=== PATIENT | female | born 1945 | race Caucasian/White ===

== ENCOUNTER 2020-06-29 07:15 | Inpatient (IN) ==
[2020-06-29] MEDS: 0.9 % Sodium Chloride 1,000 ML IVC SCH (08:19)
[2020-06-29] MEDS ORDERED: *HR* Midazolam HCl 2 MG/2 ML VIAL ONE (08:51)
[2020-06-29] MEDS ORDERED: 0.9 % Sodium Chloride 500 ML ONE (08:51)
[2020-06-29] MEDS ORDERED: *HR* FentaNYL (PF) 100 MCG/2 ML VIAL ONE (08:51)
[2020-06-29] MEDS ORDERED: Acetaminophen 325 MG TABLET PO PRN (10:21)
[2020-06-29] MEDS ORDERED: GLUCAGON HCL 1 MG IJ PRN (10:23)
[2020-06-29] MEDS ORDERED: Semaglutide [Ozempic] 0.5 MG SQ SCH (10:30)
[2020-06-29] MEDS ORDERED: *HR* Dextrose 50 % in Water (Vial) 50 ML VIAL IVP PRN (11:37)
[2020-06-29] MEDS ORDERED: D5% in Water 1,000 ML IVC PRN (11:37)
[2020-06-29] MEDS ORDERED: Dextrose Gel 15 GM/37.5 ML TUBE PO PRN ×2 (11:37)
[2020-06-29] MEDS: Insulin LISPRO 300 UNITS/3 ML VIAL SQ SCH ×2 (13:49→17:49)
[2020-06-29] MEDS: *HR* OxyCODONE Immed Rel 5 MG TABLET PO PRN (15:28)
[2020-06-29] MEDS ORDERED: CeFAZolin 2 GM/120 ML BAG IVPB SCH (16:00)
[2020-06-29] MEDS: ceFAZolin 2,000 MG in 0.9 % Sodium Chloride 100 ML IVPB SCH (17:49)
[2020-06-29] MEDS: Budesonide/Formoterol 160/4.5 1 PUFF INH IH SCH (20:00)
[2020-06-29] MEDS ORDERED: traZODone 50 MG TABLET PO SCH (21:00)
[2020-06-30] MEDS: ceFAZolin 2,000 MG in 0.9 % Sodium Chloride 100 ML IVPB SCH (01:24)
[2020-06-30 04:58] LABS: BUN/Creatinine Ratio 10 (6-26); Blood Urea Nitrogen 11 mg/dL (8-23); Carbon Dioxide 23 mEq/L (23-29); Chloride 107 mEq/L (98-107); Potassium 3.8 mEq/L (3.5-5.1); Sodium 138 mEq/L (136-145); eGFR For African Americans > 60 (> 60); eGFR For Non-African Americans 50 (> 60)
[2020-06-30] MEDS: hydroCHLOROthiazide 25 MG TABLET PO SCH (08:04)
[2020-06-30] MEDS: Aspirin Enteric Coated 325 MG Tablet PO SCH (08:04)
[2020-06-30] MEDS: *HR* OxyCODONE Immed Rel 5 MG TABLET PO PRN (08:04)
[2020-06-30] MEDS: Multivit/Ca/Min/Fe/FA 1 TAB TABLET PO SCH (08:04)
[2020-06-30] MEDS: 0.9 % Sodium Chloride 1,000 ML IVC SCH (08:05)
[2020-06-30] MEDS: Insulin LISPRO 300 UNITS/3 ML VIAL SQ SCH ×3 (08:05→17:25)
[2020-06-30] MEDS ORDERED: NON-FORMULARY MEDICATION 1 EACH EACH (Fluticasone/Umeclidin/Vilanter [Trelegy Ellipta 100- IH SCH (09:00)
[2020-06-30] MEDS ORDERED: INSULIN GLARGINE SQ SCH (09:00)
[2020-06-30] MEDS ORDERED: Linaclotide [Linzess] 145 MCG PO SCH (09:00)
[2020-06-30] MEDS ORDERED: Insulin LISPRO 300 UNITS/3 ML VIAL SQ SCH (09:00)
[2020-06-30] MEDS ORDERED: LIXISENATIDE SQ SCH (09:00)
[2020-06-30] MEDS: Tiotropium 18 MCG inhalation IH SCH (10:48)
[2020-06-30] MEDS: Budesonide/Formoterol 160/4.5 1 PUFF INH IH SCH ×2 (10:48→21:26)
[2020-06-30 11:50] LABS: Basophils # 0.1 K/mcL (0.0-0.2); Basophils % 0.9 %; Eosinophils # 0.2 K/mcL (0.0-0.6); Eosinophils % 2.6 %; Hemoglobin 11.1 g/dL (11.5-15.4); Immature Granulocytes % 0.3 % (0-4); Lymphocytes # 1.8 K/mcL (0.6-4.6); Lymphocytes % 30.6 %; Mean Corpuscular HGB Conc 31.7 g/dL (31.6-35.5); Mean Corpuscular Hemoglobin 32.5 pg (28.0-33.3); Mean Corpuscular Volume 102.3 fL (83.0-100.0); Mean Platelet Volume 10.7 fL (9.4-12.4); Monocytes # 0.6 K/mcL (0.0-1.3); Monocytes % 10.4 %; Neutrophils # 3.2 K/mcL (1.6-8.9); Platelet Count 135 K/mcL (140-400); Red Blood Count 3.42 M/mcL (3.82-4.97); Red Cell Distribution Width 14.3 % (11.5-14.5); Segmented Neutrophils % 55.2 %; White Blood Count 5.9 K/mcL (4.3-11.1)
[2020-06-30] MEDS ORDERED: Isovue-370 500 ML BOTTLE IVP ONE (11:57)
[2020-06-30 12:09] LABS: Magnesium 1.9 mg/dL (1.6-2.6)
[2020-06-30 12:20] LABS: Thyroid Stimulating Hormone 3.855 mcIU/mL (0.340-5.600)
[2020-06-30] MEDS ORDERED: Perflutren Lipid Microsphere 1.3 ML in 0.9 % Sodium Chloride 8.7 ML IVP PRN (12:51)
[2020-06-30] MEDS ORDERED: traZODone 50 MG TABLET PO PRN (21:00)
[2020-07-01 02:03] LABS: INR 1.2; Prothrombin Time 14.2 Seconds (9.4-12.1)
[2020-07-01 02:22] LABS: Alanine Aminotransferase 18 Units/L (7-52); Albumin 3.7 g/dL (3.5-5.7); Albumin/Globulin Ratio 1.2 (1.1-2.2); Alkaline Phosphatase 61 Units/L (34-104); Aspartate Amino Transferase 31 Units/L (13-39); BUN/Creatinine Ratio 13 (6-26); Bilirubin,Total 0.8 mg/dL (0.3-1.0); Blood Urea Nitrogen 15 mg/dL (8-23); Calcium 9.9 mg/dL (8.6-10.3); Carbon Dioxide 22 mEq/L (23-29); Chloride 106 mEq/L (98-107); Chol/HDL Ratio 4.3 (0-4.9); Cholesterol 162 mg/dL (< 200); Glucose 134 mg/dL (70-105); HDL Cholesterol 38 mg/dL (40-59); LDL Cholesterol,Calculated 98 mg/dL (< 100); Osmolality,Calculated 289 (280-300); Potassium 4.2 mEq/L (3.5-5.1); Sodium 138 mEq/L (136-145); Total Protein 6.7 g/dL (6.4-8.9); Triglycerides 132 mg/dL (< 150); Troponin I < 0.03 ng/mL (< 0.04); eGFR For African Americans 54 (> 60); eGFR For Non-African Americans 44 (> 60)
[2020-07-01 04:57] LABS: Estimated Average Glucose 192 mg/dl
[2020-07-01] MEDS: Budesonide/Formoterol 160/4.5 1 PUFF INH IH SCH ×2 (07:48→22:25)
[2020-07-01] MEDS: Tiotropium 18 MCG inhalation IH SCH (07:48)
[2020-07-01] MEDS: Aspirin Enteric Coated 325 MG Tablet PO SCH (08:00)
[2020-07-01] MEDS: hydroCHLOROthiazide 25 MG TABLET PO SCH (08:00)
[2020-07-01] MEDS: Insulin LISPRO 300 UNITS/3 ML VIAL SQ SCH ×3 (08:01→17:03)
[2020-07-01] MEDS: Multivit/Ca/Min/Fe/FA 1 TAB TABLET PO SCH (08:01)
[2020-07-01] MEDS ORDERED: Perflutren Lipid Microsphere 1.3 ML in 0.9 % Sodium Chloride 8.7 ML IVP PRN (08:59)
[2020-07-01] MEDS ORDERED: Ergocalciferol (VIT D2) 50,000 UNIT (1.25MG) CAP PO SCH (09:00)
[2020-07-01] MEDS: Gabapentin 300 MG CAPSULE PO SCH (19:37)
[2020-07-02 05:29] LABS: Hematocrit 34.9 % (35.3-44.9); Hemoglobin 11.2 g/dL (11.5-15.4); Mean Corpuscular HGB Conc 32.1 g/dL (31.6-35.5); Mean Corpuscular Hemoglobin 32.7 pg (28.0-33.3); Mean Platelet Volume 10.9 fL (9.4-12.4); Platelet Count 154 K/mcL (140-400); Red Blood Count 3.42 M/mcL (3.82-4.97); Red Cell Distribution Width 14.6 % (11.5-14.5)
[2020-07-02 05:48] LABS: Calcium 9.8 mg/dL (8.6-10.3); Potassium 4.5 mEq/L (3.5-5.1)
[2020-07-02] MEDS: Budesonide/Formoterol 160/4.5 1 PUFF INH IH SCH ×2 (08:00→23:04)
[2020-07-02] MEDS: Tiotropium 18 MCG inhalation IH SCH (08:00)
[2020-07-02] MEDS: Aspirin Enteric Coated 325 MG Tablet PO SCH (08:13)
[2020-07-02] MEDS: Multivit/Ca/Min/Fe/FA 1 TAB TABLET PO SCH (08:16)
[2020-07-02] MEDS: Insulin LISPRO 300 UNITS/3 ML VIAL SQ SCH ×3 (08:17→16:27)
[2020-07-02] MEDS ORDERED: Furosemide 40 MG TABLET PO SCH (09:00)
[2020-07-02] MEDS: Gabapentin 300 MG CAPSULE PO SCH (19:43)
[2020-07-03 05:55] LABS: Calcium 9.8 mg/dL (8.6-10.3); Potassium 4.5 mEq/L (3.5-5.1)
[2020-07-03] MEDS ORDERED: Ringers Solution, Lactated 1,000 ML IVC ONE (07:16)
[2020-07-03] MEDS: Insulin LISPRO 300 UNITS/3 ML VIAL SQ SCH ×3 (08:13→17:02)
[2020-07-03] MEDS: Multivit/Ca/Min/Fe/FA 1 TAB TABLET PO SCH (08:16)
[2020-07-03] MEDS: Aspirin Enteric Coated 325 MG Tablet PO SCH (08:16)
[2020-07-03] MEDS ORDERED: Semaglutide [Ozempic] 0.5 MG SQ SCH ×2 (09:00)
[2020-07-03] MEDS: Budesonide/Formoterol 160/4.5 1 PUFF INH IH SCH ×2 (11:24→21:45)
[2020-07-03] MEDS: Tiotropium 18 MCG inhalation IH SCH (11:24)
[2020-07-03] MEDS: Gabapentin 300 MG CAPSULE PO SCH (20:10)
[2020-07-04 04:07] LABS: Basophils # 0.1 K/mcL (0.0-0.2); Basophils % 1.1 %; Eosinophils # 0.3 K/mcL (0.0-0.6); Eosinophils % 4.6 %; Hematocrit 34.9 % (35.3-44.9); Hemoglobin 11.3 g/dL (11.5-15.4); Immature Granulocytes % 0.1 % (0-4); Lymphocytes # 2.9 K/mcL (0.6-4.6); Lymphocytes % 41.1 %; Mean Corpuscular HGB Conc 32.4 g/dL (31.6-35.5); Mean Corpuscular Hemoglobin 32.5 pg (28.0-33.3); Mean Corpuscular Volume 100.3 fL (83.0-100.0); Mean Platelet Volume 10.7 fL (9.4-12.4); Monocytes # 0.6 K/mcL (0.0-1.3); Neutrophils # 3.1 K/mcL (1.6-8.9); Platelet Count 167 K/mcL (140-400); Red Blood Count 3.48 M/mcL (3.82-4.97); Red Cell Distribution Width 14.3 % (11.5-14.5); Segmented Neutrophils % 44.1 %
[2020-07-04 04:27] LABS: Calcium 9.5 mg/dL (8.6-10.3); Potassium 4.2 mEq/L (3.5-5.1)
[2020-07-04] MEDS: Budesonide/Formoterol 160/4.5 1 PUFF INH IH SCH ×2 (08:01→20:28)
[2020-07-04] MEDS: Tiotropium 18 MCG inhalation IH SCH (08:01)
[2020-07-04] MEDS: Insulin LISPRO 300 UNITS/3 ML VIAL SQ SCH ×3 (10:42→17:49)
[2020-07-04] MEDS: Aspirin Enteric Coated 325 MG Tablet PO SCH (10:49)
[2020-07-04] MEDS: Multivit/Ca/Min/Fe/FA 1 TAB TABLET PO SCH (10:49)
[2020-07-04] MEDS: Gabapentin 300 MG CAPSULE PO SCH (20:34)
[2020-07-05] MEDS ORDERED: Apixaban 5 MG TABLET PO SCH (09:00)
[2020-07-05 09:03] LABS: Bilirubin,Urine Negative (Negative); Blood,Urine Large (Negative); Clarity,Urine Turbid (Clear); Color,Urine Brown (Yellow); Glucose,Urine (UA) Normal (Normal); Ketones,Urine Negative (Negative); Leukocyte Esterase,Urine Trace (Negative); Nitrite,Urine Negative (Negative); Protein,Urine 50 mg/dL (Neg-Trace); RBC,Urine TNTC per hpf (0-3); Specific Gravity,Urine 1.013 (1.010-1.025); Urobilinogen,Urine Normal (Normal); WBC,Urine 50-100 per hpf (0-3)
[2020-07-05] MEDS: Multivit/Ca/Min/Fe/FA 1 TAB TABLET PO SCH (09:27)
[2020-07-05] MEDS: Insulin LISPRO 300 UNITS/3 ML VIAL SQ SCH ×5 (09:28→20:31)
[2020-07-05] MEDS: Budesonide/Formoterol 160/4.5 1 PUFF INH IH SCH ×2 (10:11→19:40)
[2020-07-05] MEDS: Tiotropium 18 MCG inhalation IH SCH (10:13)
[2020-07-05 11:04] LABS: Basophils # 0.1 K/mcL (0.0-0.2); Basophils % 1.1 %; Eosinophils # 0.2 K/mcL (0.0-0.6); Eosinophils % 4.3 %; Hematocrit 34.5 % (35.3-44.9); Hemoglobin 10.7 g/dL (11.5-15.4); Immature Granulocytes % 0.2 % (0-4); Lymphocytes # 1.9 K/mcL (0.6-4.6); Lymphocytes % 36.4 %; Mean Corpuscular Hemoglobin 32.4 pg (28.0-33.3); Mean Corpuscular Volume 104.5 fL (83.0-100.0); Mean Platelet Volume 10.9 fL (9.4-12.4); Monocytes # 0.4 K/mcL (0.0-1.3); Monocytes % 7.7 %; Neutrophils # 2.7 K/mcL (1.6-8.9); Platelet Count 155 K/mcL (140-400); Red Cell Distribution Width 14.3 % (11.5-14.5); Segmented Neutrophils % 50.3 %; White Blood Count 5.3 K/mcL (4.3-11.1)
[2020-07-05 11:12] LABS: Calcium 9.6 mg/dL (8.6-10.3); Potassium 4.4 mEq/L (3.5-5.1)
[2020-07-05] MEDS: cefTRIAXone 2,000 MG in Water for inj. (sterile) 20 ML IVP SCH (16:25)
[2020-07-05] MEDS: 0.9 % Sodium Chloride 1,000 ML IVC SCH (17:38)
[2020-07-05] MEDS: Gabapentin 300 MG CAPSULE PO SCH (20:30)
[2020-07-05] MEDS: Insulin DETEMIR 100 UNIT/ML X5UNITS SQ SCH (20:31)
[2020-07-05 20:45] LABS: Hematocrit 36.1 % (35.3-44.9); Hemoglobin 11.4 g/dL (11.5-15.4)
[2020-07-06 05:58] LABS: Basophils # 0.1 K/mcL (0.0-0.2); Basophils % 0.9 %; Eosinophils # 0.4 K/mcL (0.0-0.6); Eosinophils % 5.4 %; Hematocrit 34.4 % (35.3-44.9); Hemoglobin 10.9 g/dL (11.5-15.4); Immature Granulocytes % 0.2 % (0-4); Lymphocytes # 2.9 K/mcL (0.6-4.6); Lymphocytes % 44.8 %; Mean Corpuscular HGB Conc 31.7 g/dL (31.6-35.5); Mean Corpuscular Hemoglobin 32.7 pg (28.0-33.3); Mean Corpuscular Volume 103.3 fL (83.0-100.0); Mean Platelet Volume 10.9 fL (9.4-12.4); Monocytes # 0.6 K/mcL (0.0-1.3); Monocytes % 9.3 %; Neutrophils # 2.6 K/mcL (1.6-8.9); Nucleated Red Blood Cells 0.3 /100 WBC (0); Platelet Count 155 K/mcL (140-400); Red Blood Count 3.33 M/mcL (3.82-4.97); Red Cell Distribution Width 14.6 % (11.5-14.5); Segmented Neutrophils % 39.4 %; White Blood Count 6.5 K/mcL (4.3-11.1)
[2020-07-06 06:17] LABS: Calcium 9.5 mg/dL (8.6-10.3); Potassium 4.5 mEq/L (3.5-5.1)
[2020-07-06] MEDS: Budesonide/Formoterol 160/4.5 1 PUFF INH IH SCH ×2 (07:46→20:05)
[2020-07-06] MEDS: Tiotropium 18 MCG inhalation IH SCH (07:46)
[2020-07-06] MEDS: Insulin DETEMIR 100 UNIT/ML X5UNITS SQ SCH ×2 (08:38→20:53)
[2020-07-06] MEDS: Insulin LISPRO 300 UNITS/3 ML VIAL SQ SCH ×6 (08:38→16:21)
[2020-07-06] MEDS: Multivit/Ca/Min/Fe/FA 1 TAB TABLET PO SCH (08:38)
[2020-07-06] MEDS: 0.9 % Sodium Chloride 1,000 ML IVC SCH ×2 (08:42→23:36)
[2020-07-06] MEDS: cefTRIAXone 2,000 MG in Water for inj. (sterile) 20 ML IVP SCH (16:21)
[2020-07-06] MEDS: Gabapentin 300 MG CAPSULE PO SCH (20:54)
[2020-07-07] MEDS: Insulin LISPRO 300 UNITS/3 ML VIAL SQ SCH ×5 (01:09→11:55)
[2020-07-07 06:59] LABS: Basophils # 0.1 K/mcL (0.0-0.2); Eosinophils # 0.4 K/mcL (0.0-0.6); Eosinophils % 6.1 %; Hematocrit 34.7 % (35.3-44.9); Hemoglobin 10.9 g/dL (11.5-15.4); Immature Granulocytes % 0.3 % (0-4); Lymphocytes # 2.6 K/mcL (0.6-4.6); Mean Corpuscular HGB Conc 31.4 g/dL (31.6-35.5); Mean Corpuscular Volume 105.2 fL (83.0-100.0); Mean Platelet Volume 10.9 fL (9.4-12.4); Monocytes # 0.5 K/mcL (0.0-1.3); Neutrophils # 2.2 K/mcL (1.6-8.9); Platelet Count 145 K/mcL (140-400); Red Cell Distribution Width 14.3 % (11.5-14.5); Segmented Neutrophils % 38.6 %; White Blood Count 5.8 K/mcL (4.3-11.1)
[2020-07-07 07:27] LABS: Calcium 9.4 mg/dL (8.6-10.3); Potassium 4.2 mEq/L (3.5-5.1)
[2020-07-07] MEDS: Multivit/Ca/Min/Fe/FA 1 TAB TABLET PO SCH (08:48)
[2020-07-07] MEDS: Insulin DETEMIR 100 UNIT/ML X5UNITS SQ SCH (08:48)
[2020-07-07 11:49] VITALS: BP 124/66
[2020-07-07] MEDS: Aspirin Enteric Coated 81 MG Tablet PO SCH ×2 (11:55→11:56)
[2020-07-07] MEDS: Tiotropium 18 MCG inhalation IH SCH (13:42)
[2020-07-07] MEDS: Budesonide/Formoterol 160/4.5 1 PUFF INH IH SCH (13:42)
[2020-07-07] MEDS ORDERED: Apixaban 5 MG TABLET PO SCH (13:59)
== END 2020-07-07 16:45 | disposition home health service (06) | DRG 41 ==
LOC: INVDIALAB 07:15 → 2ANU 10:33
PROVIDERS: ADMIT Internal Medicine Clinical Cardiac Electrophysiology; ATTEND Internal Medicine Clinical Cardiac Electrophysiology

== ENCOUNTER 2021-12-29 17:33 | Inpatient (IN) ==
[2021-12-29] MEDS ORDERED: Naloxone 0.4 MG/ML INJ IVP PRN (19:33)
[2021-12-29] MEDS ORDERED: Acetaminophen 325 MG TABLET PO PRN (19:33)
[2021-12-29] MEDS ORDERED: Ondansetron 4 MG/2 ML VIAL IVP PRN (19:33)
[2021-12-29] MEDS ORDERED: D5% in Water 1,000 ML IVC PRN (19:38)
[2021-12-29] MEDS ORDERED: *HR* Dextrose 50 % in Water (Syg) 50 ML SYRINGE IVP PRN (19:38)
[2021-12-29] MEDS ORDERED: Dextrose 4 GM Chewable Tablets PO PRN ×2 (19:38)
[2021-12-30 01:01] LABS: Bacteria,Urine Few per hpf (None-Few); Bilirubin,Urine Negative (Negative); Blood,Urine Small (Negative); Budding Yeast,Urine Few per hpf (None Seen); Clarity,Urine Turbid (Clear); Color,Urine Yellow (Yellow); Glucose,Urine (UA) 300 mg/dL (Normal); Ketones,Urine Negative (Negative); Leukocyte Esterase,Urine Large (Negative); Nitrite,Urine Negative (Negative); Protein,Urine 30 mg/dL (Neg-Trace); Specific Gravity,Urine 1.017 (1.010-1.025); Squamous Epithelial Cell,Urine Few per hpf (None-Few); Transitional Epi Cells,Urine Few per hpf (None-Few); Urobilinogen,Urine Normal (Normal); WBC,Urine TNTC per hpf (0-3)
[2021-12-30] MEDS ORDERED: diazePAM 2 MG TABLET PO PRN (03:49)
[2021-12-30] MEDS ORDERED: traZODone 50 MG TABLET PO PRN (03:49)
[2021-12-30 05:56] LABS: INR 1.1; Prothrombin Time 12.7 Seconds (9.4-12.1)
[2021-12-30 06:13] LABS: Albumin 3.5 g/dL (3.5-5.7); Albumin/Globulin Ratio 1.3 (1.1-2.2); Bilirubin,Direct 0.1 mg/dL (0.0-0.2); Bilirubin,Indirect 0.6 mg/dL (0.0-1.0); Bilirubin,Total 0.7 mg/dL (0.3-1.0); Calcium 9.5 mg/dL (8.6-10.3); Chol/HDL Ratio 4.9 (0-4.9); Globulin 2.8 g/dL (2.4-3.5); Magnesium 1.9 mg/dL (1.6-2.6); Potassium 4.2 mEq/L (3.5-5.1); Total Protein 6.3 g/dL (6.4-8.9)
[2021-12-30 06:23] LABS: Thyroid Stimulating Hormone 6.494 mcIU/mL (0.340-5.600)
[2021-12-30 06:24] LABS: Estimated Average Glucose 229 mg/dl; Hemoglobin A1C 9.6 %
[2021-12-30] MEDS: Insulin LISPRO 300 UNITS/3 ML VIAL SUBQ SCH ×3 (07:38→17:13)
[2021-12-30] MEDS ORDERED: Tiotropium 10 INH DOSE IH ONE (07:41)
[2021-12-30] MEDS: Budesonide/Formoterol 160/4.5 1 PUFF INH IH SCH ×2 (07:43→19:55)
[2021-12-30] MEDS: Tiotropium 10 INH DOSE IH SCH (07:44)
[2021-12-30] MEDS: Cholecalciferol (D-3) 1,000 UNIT (25MCG) TABLET PO SCH (08:48)
[2021-12-30] MEDS: *HR* Amiodarone 200 MG TABLET PO SCH (08:48)
[2021-12-30] MEDS: Cyanocobalamin (B-12) 1,000 MCG TABLET PO SCH (08:48)
[2021-12-30] MEDS: carvediloL 6.25 MG TABLET PO SCH ×2 (08:48→17:12)
[2021-12-30] MEDS: Ertapenem 1,000 MG in 0.9 % Sodium Chloride Mini Bag 100 ML IVPB SCH (08:49)
[2021-12-30] MEDS: Insulin DETEMIR 100 UNIT/ML X5UNITS SUBQ SCH (21:09)
[2021-12-30] MEDS: Gabapentin 300 MG CAPSULE PO SCH (21:11)
[2021-12-31] MEDS: Budesonide/Formoterol 160/4.5 1 PUFF INH IH SCH ×2 (07:40→20:04)
[2021-12-31] MEDS: Tiotropium 10 INH DOSE IH SCH (07:40)
[2021-12-31] MEDS: Cyanocobalamin (B-12) 1,000 MCG TABLET PO SCH (08:04)
[2021-12-31] MEDS: Cholecalciferol (D-3) 1,000 UNIT (25MCG) TABLET PO SCH (08:04)
[2021-12-31] MEDS: carvediloL 6.25 MG TABLET PO SCH ×2 (08:04→17:05)
[2021-12-31] MEDS: Ertapenem 1,000 MG in 0.9 % Sodium Chloride Mini Bag 100 ML IVPB SCH (08:04)
[2021-12-31] MEDS: *HR* Amiodarone 200 MG TABLET PO SCH (08:04)
[2021-12-31] MEDS: Insulin LISPRO 300 UNITS/3 ML VIAL SUBQ SCH ×3 (08:08→16:59)
[2021-12-31] MEDS: Insulin DETEMIR 100 UNIT/ML X5UNITS SUBQ SCH (20:42)
[2021-12-31] MEDS: Gabapentin 300 MG CAPSULE PO SCH (20:42)
[2022-01-01] MEDS: Insulin LISPRO 300 UNITS/3 ML VIAL SUBQ SCH ×3 (07:25→17:00)
[2022-01-01] MEDS: *HR* Amiodarone 200 MG TABLET PO SCH (08:34)
[2022-01-01] MEDS: Cyanocobalamin (B-12) 1,000 MCG TABLET PO SCH (08:34)
[2022-01-01] MEDS: Cholecalciferol (D-3) 1,000 UNIT (25MCG) TABLET PO SCH (08:34)
[2022-01-01] MEDS: carvediloL 6.25 MG TABLET PO SCH ×2 (08:34→17:00)
[2022-01-01] MEDS: Ertapenem 1,000 MG in 0.9 % Sodium Chloride Mini Bag 100 ML IVPB SCH (08:35)
[2022-01-01] MEDS: Budesonide/Formoterol 160/4.5 1 PUFF INH IH SCH ×2 (10:32→19:55)
[2022-01-01] MEDS: Tiotropium 10 INH DOSE IH SCH (10:34)
[2022-01-01] MEDS: Apixaban 5 MG TABLET PO SCH (20:40)
[2022-01-01] MEDS: Gabapentin 300 MG CAPSULE PO SCH (20:40)
[2022-01-01] MEDS: Insulin DETEMIR 100 UNIT/ML X5UNITS SUBQ SCH (20:43)
[2022-01-02] MEDS: Tiotropium 10 INH DOSE IH SCH (07:26)
[2022-01-02] MEDS: Budesonide/Formoterol 160/4.5 1 PUFF INH IH SCH ×2 (07:26→20:04)
[2022-01-02] MEDS: Insulin LISPRO 300 UNITS/3 ML VIAL SUBQ SCH ×3 (07:49→18:08)
[2022-01-02] MEDS: Apixaban 5 MG TABLET PO SCH ×2 (08:29→21:05)
[2022-01-02] MEDS: Cholecalciferol (D-3) 1,000 UNIT (25MCG) TABLET PO SCH (08:29)
[2022-01-02] MEDS: carvediloL 6.25 MG TABLET PO SCH ×2 (08:29→18:31)
[2022-01-02] MEDS: *HR* Amiodarone 200 MG TABLET PO SCH (08:30)
[2022-01-02] MEDS: Cyanocobalamin (B-12) 1,000 MCG TABLET PO SCH (08:30)
[2022-01-02] MEDS ORDERED: Insulin DETEMIR 100 UNIT/ML X5UNITS SUBQ SCH (21:00)
[2022-01-02] MEDS: Gabapentin 300 MG CAPSULE PO SCH (21:04)
[2022-01-02 23:14] LABS: Influenza A PCR Negative (Negative); Influenza B PCR Negative (Negative); Resp. Syncytial Virus PCR Negative (Negative); SARS-CoV-2 by PCR (In House) Negative (Negative)
[2022-01-03 03:00] VITALS: PULSE 60
[2022-01-03] MEDS: Insulin LISPRO 300 UNITS/3 ML VIAL SUBQ SCH ×2 (07:30→13:49)
[2022-01-03] MEDS: Cholecalciferol (D-3) 1,000 UNIT (25MCG) TABLET PO SCH (08:30)
[2022-01-03] MEDS: *HR* Amiodarone 200 MG TABLET PO SCH (08:30)
[2022-01-03] MEDS: carvediloL 6.25 MG TABLET PO SCH (08:30)
[2022-01-03] MEDS: Apixaban 5 MG TABLET PO SCH (08:30)
[2022-01-03] MEDS: Cyanocobalamin (B-12) 1,000 MCG TABLET PO SCH (08:30)
[2022-01-03] MEDS: Budesonide/Formoterol 160/4.5 1 PUFF INH IH SCH (10:30)
[2022-01-03] MEDS: Tiotropium 10 INH DOSE IH SCH (10:30)
[2022-01-03 10:33] VITALS: O2SAT 95
[2022-01-03 15:22] VITALS: BP 128/73; TEMP 97.6
== END 2022-01-03 15:57 | disposition other institution (70) | DRG 313 ==
LOC: 3BNU → SUATTDRO 18:49
PROVIDERS: ADMIT Internal Medicine; ATTEND Internal Medicine

== ENCOUNTER 2022-06-04 08:23 | Inpatient (IN) ==
[2022-06-04] MEDS ORDERED: 0.9 % Sodium Chloride 1,000 ML ONE ×2 (08:34→10:56)
[2022-06-04] MEDS ORDERED: Protamine Sulfate 50 MG/5 ML VIAL IVP ONE (10:55)
[2022-06-04] MEDS ORDERED: Heparin 1,000 UNITS/500 mL 2,000 ML ONE (10:56)
[2022-06-04] MEDS ORDERED: *HR* Heparin 10,000 UNIT/10 ML VIAL ONE (10:56)
[2022-06-04] MEDS ORDERED: Iopamidol - 370 200 ML INFUS..BTL ONE (10:56)
[2022-06-04] MEDS ORDERED: Heparin 1,000 UNITS/500 mL 500 ML ONE (13:15)
[2022-06-04] MEDS ORDERED: traZODone 50 MG TABLET PO PRN (13:50)
[2022-06-04] MEDS ORDERED: *HR* OxyCODONE/APAP 7.5/325 TABLET PO PRN (13:50)
[2022-06-04] MEDS ORDERED: Lidocaine/EPI 1:100k 1% 50 ML VIAL ONE (14:17)
[2022-06-04] MEDS ORDERED: *HR* Propofol 200 MG/20 ML VIAL IVP ONE (16:39)
[2022-06-04] MEDS ORDERED: Lidocaine -MPF 4% 5 ML AMPUL TP ONE (16:39)
[2022-06-04] MEDS ORDERED: Ondansetron 4 MG/2 ML VIAL IVP ONE (16:39)
[2022-06-04] MEDS ORDERED: Lidocaine -MPF 2% 5 ML VIAL SQ ONE (16:39)
[2022-06-04] MEDS ORDERED: EPHEDrine 50 MG/ML VIAL IVP ONE (16:39)
[2022-06-04] MEDS ORDERED: carvediloL 6.25 MG TABLET PO SCH (17:00)
[2022-06-04] MEDS ORDERED: Ondansetron 4 MG/2 ML VIAL ONE (19:45)
[2022-06-04] MEDS ORDERED: Ondansetron 4 MG/2 ML VIAL IVP PRN (19:50)
[2022-06-04] MEDS ORDERED: Gabapentin 300 MG CAPSULE PO SCH (21:00)
[2022-06-04 23:04] LABS: INR 1.9; Prothrombin Time 21.6 Seconds (9.4-12.1)
[2022-06-05] MEDS: Apixaban 5 MG TABLET PO SCH ×2 (00:04→09:50)
[2022-06-05 03:00] LABS: Basophils # 0.1 K/mcL (0.0-0.2); Eosinophils # 0.2 K/mcL (0.0-0.6); Eosinophils % 3.3 %; Hemoglobin 10.4 g/dL (11.5-15.4); Immature Granulocytes % 0.3 % (0-4); Immature Platelets 6.3 % (1.1-6.1); Lymphocytes % 28.1 %; Mean Corpuscular HGB Conc 32.5 g/dL (31.6-35.5); Mean Corpuscular Hemoglobin 34.1 pg (28.0-33.3); Mean Corpuscular Volume 104.9 fL (83.0-100.0); Mean Platelet Volume 11.5 fL (9.4-12.4); Monocytes # 0.8 K/mcL (0.0-1.3); Monocytes % 11.4 %; Red Blood Count 3.05 M/mcL (3.82-4.97); Red Cell Distribution Width 14.3 % (11.5-14.5); Segmented Neutrophils % 55.9 %; White Blood Count 7.2 K/mcL (4.3-11.1)
[2022-06-05 03:04] LABS: INR 1.9
[2022-06-05 03:08] LABS: Platelet Count 88 K/mcL (140-400)
[2022-06-05 03:17] LABS: Calcium 9.3 mg/dL (8.6-10.3); Potassium 4.5 mEq/L (3.5-5.1)
[2022-06-05 08:31] VITALS: PULSE 60
[2022-06-05] MEDS ORDERED: *HR* Amiodarone 200 MG TABLET PO SCH (09:00)
[2022-06-05] MEDS ORDERED: Linaclotide [Linzess] 145 MCG Capsule PO SCH (09:00)
[2022-06-05] MEDS ORDERED: Ezetimibe [Zetia] 10 MG Tablet PO SCH (09:00)
[2022-06-05] MEDS ORDERED: Isosorbide MONOnitrate (24 HR) 30 MG TAB.ER.24H PO SCH (09:00)
[2022-06-05] MEDS ORDERED: Cyanocobalamin (B-12) 1,000 MCG TABLET PO SCH (09:00)
[2022-06-05 09:33] LABS: Hematocrit 31.5 % (35.3-44.9); Immature Granulocytes % 0.3 % (0-4); Mean Platelet Volume 11.5 fL (9.4-12.4)
[2022-06-05 09:35] LABS: Basophils # 0.1 K/mcL (0.0-0.2); Basophils % 1.4 %; Eosinophils # 0.3 K/mcL (0.0-0.6); Eosinophils % 3.4 %; Hemoglobin 10.2 g/dL (11.5-15.4); Immature Platelets 5.4 % (1.1-6.1); Mean Corpuscular HGB Conc 32.4 g/dL (31.6-35.5); Mean Corpuscular Hemoglobin 33.6 pg (28.0-33.3); Mean Corpuscular Volume 103.6 fL (83.0-100.0); Monocytes % 11.9 %; Neutrophils # 3.6 K/mcL (1.6-8.9); Platelet Count 104 K/mcL (140-400); Red Blood Count 3.04 M/mcL (3.82-4.97); Red Cell Distribution Width 14.3 % (11.5-14.5)
[2022-06-05 09:53] LABS: Calcium 8.9 mg/dL (8.6-10.3); Potassium 4.5 mEq/L (3.5-5.1)
[2022-06-05] MEDS ORDERED: 0.9 % Sodium Chloride 500 ML IVC ONE (11:23)
[2022-06-05 13:49] VITALS: BP 110/62; TEMP 97.6; O2SAT 94
[2022-06-05] MEDS ORDERED: carvediloL 6.25 MG TABLET PO SCH (17:00)
[2022-06-07] MEDS ORDERED: Ergocalciferol (VIT D2) 50,000 UNIT (1.25MG) CAP PO SCH (13:50)
== END 2022-06-05 16:40 | disposition home or self-care (01) | DRG 274 ==
LOC: INVDIALAB 08:23 → 2NENU 15:56
PROVIDERS: ADMIT Otolaryngology; ATTEND Otolaryngology